=== PATIENT | female | born 1990 | race Caucasian/White ===

== ENCOUNTER 2017-02-19 18:27 | Emergency (ER) | payer OTHER ==
[~2017-02-19] VITALS: Ht 170.2 cm; Wt 79.4 kg
[~2017-02-19 18:27] MED LIST: ACET50TA PO; BUSP10TA PO; COLA100C3 PO; FERR325T PO; IBUP60TA PO; MULTTAB4 PO
[2017-02-19] MEDS ORDERED: LEXA1TAB2 PO (18:36)
[2017-02-19] MEDS ORDERED: ACETAMINOPHEN 325 MG TAB PO ONE (20:45)
[2017-02-19] MEDS ORDERED: PENICILLIN V POTASSIUM 500 MG TAB PO ONE (20:45)
[2017-02-19] MEDS ORDERED: PENI250T57 PO (20:49)
[2017-02-19 20:57] VITALS: BP 111/66
== END 2017-02-19 20:58 | disposition home or self-care (01) ==
LOC: M ED 19:49
DX: J02.0 Streptococcal pharyngitis (principal); D68.0 Von Willebrand disease; F41.9 Anxiety disorder, unspecified; Q79.6 Ehlers-Danlos syndromes; F17.210 Nicotine dependence, cigarettes, uncomplicated; Z88.5 Allergy status to narcotic agent; Z79.899 Other long term (current) drug therapy

== ENCOUNTER → 2017-08-01 | Outpatient (REF) | payer OTHER, MEDICAID ==
[~2017-08-01] MED LIST changes: -COLA100C3 PO; +COLA100C5 PO; +FERR1TAB8 PO; -FERR325T PO; +LEXA1TAB2 PO; +PENI250T57 PO
[2017-08-01 13:33] LABS: BASO # 0.1 10^3/uL (0.0-0.2); BASO % 0.9 % (0.0-1.0); EOS # 0.1 10^3/uL (0.0-0.50); EOS % 1.4 % (0.0-3.0); IMMATURE GRANULOCYTE % 0.4 % (0-0); LYMPH # 1.9 10^3/uL (1.5-6.5); LYMPH % 34.2 % (24.0-44.0); MEAN CORPUSCULAR HEMOGLOBIN 31.4 pg (27.0-33.0); MEAN CORPUSCULAR HGB CONC 33.2 g/dl (32.0-36.5); MEAN CORPUSCULAR VOLUME 94.6 fl (80.0-96.0); MONO # 0.5 10^3/uL (0.0-0.8); MONO % 9.6 % (0.0-5.0); NEUTROPHILS % 53.5 % (36.0-66.0); PLATELET COUNT, AUTOMATED 255 10^3/uL (150-450); RED CELL DISTRIBUTION WIDTH 13.6 % (11.5-14.5); WHITE BLOOD COUNT 5.5 10^3/uL (4.0-10.0)
[2017-08-01 14:01] LABS: ALBUMIN 3.7 GM/DL (3.2-5.2); ALBUMIN/GLOBULIN RATIO 1.12 (1.00-1.93); ALKALINE PHOSPHATASE 77 U/L (45-117); ALT/SGPT 20 U/L (12-78); ANION GAP 9 MEQ/L (8-16); AST/SGOT 11 U/L (15-37); BILIRUBIN,TOTAL 0.4 MG/DL (0.2-1.0); BLOOD UREA NITROGEN 12 MG/DL (7-18); CALCIUM LEVEL 8.7 MG/DL (8.5-10.1); CARBON DIOXIDE LEVEL 23 MEQ/L (21-32); CHLORIDE LEVEL 107 MEQ/L (98-107); CHOLESTEROL LEVEL 144 MG/DL (<200); CREATININE FOR GFR 0.89 MG/DL (0.55-1.02); GLOMERULAR FILTRATION RATE > 60.0 (>60); GLUCOSE, FASTING 96 MG/DL (70-105); POTASSIUM SERUM 4.3 MEQ/L (3.5-5.1); SODIUM LEVEL 139 MEQ/L (136-145); TRIGLYCERIDES LEVEL 34 MG/DL (<150)
[2017-08-01 15:02] LABS: ERYTHROCYTE SEDIMENTATION RATE 10 mm/hr (0-20)
== END ==
LOC: M LAB REF 12:33
PROVIDERS: ATTEND Family Medicine Addiction Medicine
DX: Z00.01 Encounter for general adult medical examination with abnormal findings (principal); F51.5 Nightmare disorder; M25.50 Pain in unspecified joint

== ENCOUNTER → 2017-08-22 | Outpatient (REF) | payer OTHER | LOC: M SFHCWAGY 14:31 | PROVIDERS: ATTEND Nurse Practitioner Women's Health | DX: Z11.4 Encounter for screening for human immunodeficiency virus [HIV] (principal); Z11.3 Encounter for screening for infections with a predominantly sexual mode of transmission ==

== ENCOUNTER → 2017-11-02 | Outpatient (REF) | payer OTHER ==
[2017-11-02 13:59] LABS: CHLAMYDIA DNA AMPLIFICATION NEGATIVE (NEGATIVE); GC DNA AMPLIFICATION NEGATIVE (NEGATIVE)
== END ==
LOC: M SFHCWAGY 11:38
DX: Z11.3 Encounter for screening for infections with a predominantly sexual mode of transmission (principal); R10.2 Pelvic and perineal pain

== ENCOUNTER → 2017-11-02 | Outpatient (CLI) | payer OTHER | LOC: M WHC 13:01 | DX: R10.2 Pelvic and perineal pain (principal) | CPT/HCPCS: 76830 ==

== ENCOUNTER → 2017-12-07 | Outpatient (CLI) | payer OTHER ==
[2017-12-07 11:11] LABS: BASO % 0.6 % (0.0-1.0); EOS # 0.1 10^3/uL (0.0-0.50); EOS % 1.1 % (0.0-3.0); HEMATOCRIT 38.8 % (36.0-47.0); HEMOGLOBIN 13.1 g/dl (12.0-16.0); IMMATURE GRANULOCYTE % 0.6 % (0-3.0); LYMPH # 1.8 10^3/uL (1.5-6.5); LYMPH % 27.5 % (24.0-44.0); MEAN CORPUSCULAR HEMOGLOBIN 31.1 pg (27.0-33.0); MEAN CORPUSCULAR HGB CONC 33.8 g/dl (32.0-36.5); MEAN CORPUSCULAR VOLUME 92.2 fl (80.0-96.0); MONO # 0.7 10^3/uL (0.0-0.8); MONO % 10.9 % (0.0-5.0); NEUTROPHILS # 3.8 10^3/uL (1.8-7.7); NEUTROPHILS % 59.3 % (36.0-66.0); PLATELET COUNT, AUTOMATED 268 10^3/uL (150-450); RED BLOOD COUNT 4.21 10^6/uL (4.00-5.40); RED CELL DISTRIBUTION WIDTH 13.8 % (11.5-14.5); WHITE BLOOD COUNT 6.4 10^3/uL (4.0-10.0)
[2017-12-07 11:31] LABS: ESTIMATED AVERAGE GLUCOSE 105 MG/DL (60-110); HEMOGLOBIN A1c 5.3 %
[2017-12-07 11:45] LABS: ALBUMIN 3.7 GM/DL (3.2-5.2); ALKALINE PHOSPHATASE 78 U/L (45-117); ALT/SGPT 18 U/L (12-78); ANION GAP 7 MEQ/L (8-16); AST/SGOT 15 U/L (7-37); BILIRUBIN,TOTAL 0.3 MG/DL (0.2-1.0); BLOOD UREA NITROGEN 12 MG/DL (7-18); CALCIUM LEVEL 8.6 MG/DL (8.5-10.1); CARBON DIOXIDE LEVEL 26 MEQ/L (21-32); CHLORIDE LEVEL 106 MEQ/L (98-107); CHOLESTEROL LEVEL 142 MG/DL (<200); CREATININE FOR GFR 0.77 MG/DL (0.55-1.30); GLOMERULAR FILTRATION RATE > 60.0 (>60); GLUCOSE, FASTING 92 MG/DL (70-100); HCG, SERUM QUANTITATIVE < 1.0 MIU/ML; HDL CHOLESTEROL 52 MG/DL (>40); LDL CHOLESTEROL 81.6 MG/DL (<100); NON-HDL-C 90 MG/DL; POTASSIUM SERUM 3.9 MEQ/L (3.5-5.1); SODIUM LEVEL 139 MEQ/L (136-145); TOTAL PROTEIN 7.4 GM/DL (6.4-8.2); TRIGLYCERIDES LEVEL 42 MG/DL (<150)
[2017-12-07 11:46] LABS: TOTAL 25(OH) VITAMIN D 26.4 NG/ML (30.0-100.0)
== END ==
LOC: M LAB 10:51
DX: F43.10 Post-traumatic stress disorder, unspecified (principal)
CPT/HCPCS: 84443

== ENCOUNTER → 2018-01-10 | Outpatient (CLI) | payer OTHER ==
[2018-01-10 14:13] LABS: HCG, SERUM QUALITATIVE POSITIVE (NEGATIVE)
[2018-01-10 14:14] LABS: CONTROL LINE HCG INT CTR LINE PRESENT
== END ==
LOC: M LRY 10:45
DX: F43.10 Post-traumatic stress disorder, unspecified (principal)
CPT/HCPCS: 84703

== ENCOUNTER → 2018-01-19 | Outpatient (REF) | payer OTHER ==
[2018-01-19 20:21] LABS: CHLAMYDIA DNA AMPLIFICATION NEGATIVE (NEGATIVE); GC DNA AMPLIFICATION NEGATIVE (NEGATIVE)
== END ==
LOC: M SFHCLERA 12:29
DX: N89.8 Other specified noninflammatory disorders of vagina (principal)

== ENCOUNTER → 2018-03-26 | Outpatient (CLI) | payer OTHER | LOC: M CARPUL 09:54 | DX: L94.9 Localized connective tissue disorder, unspecified (principal) | CPT/HCPCS: 93306 ==

== ENCOUNTER 2018-04-18 14:57 | Emergency (ER) | payer OTHER ==
[2018-04-18] MEDS: NORCO, ANEXSIA 5/325MG TABLET (HYDROcodone/ACETAMINOPHEN) PO (15:59)
[2018-04-18 16:05] LABS: BASO % 0.2 % (0.0-1.0); EOS # 0.2 10^3/uL (0.0-0.50); EOS % 1.3 % (0.0-3.0); HEMATOCRIT 33.4 % (36.0-47.0); HEMOGLOBIN 11.8 g/dl (12.0-15.5); IMMATURE GRANULOCYTE % 0.9 % (0-3.0); LYMPH % 16.5 % (24.0-44.0); MEAN CORPUSCULAR HEMOGLOBIN 32.8 pg (27.0-33.0); MEAN CORPUSCULAR HGB CONC 35.3 g/dl (32.0-36.5); MEAN CORPUSCULAR VOLUME 92.8 fl (80.0-96.0); MONO # 0.8 10^3/uL (0.0-0.8); MONO % 6.6 % (0.0-5.0); NEUTROPHILS # 8.8 10^3/uL (1.8-7.7); NEUTROPHILS % 74.5 % (36.0-66.0); PLATELET COUNT, AUTOMATED 243 10^3/uL (150-450); RED CELL DISTRIBUTION WIDTH 13.9 % (11.5-14.5); WHITE BLOOD COUNT 11.9 10^3/uL (4.0-10.0)
[2018-04-18 16:15] LABS: KETONE, URINE AUTO RFX NEGATIVE (NEGATIVE); MUCUS, URINE RFX SMALL (NEGATIVE); NITRITE, URINE AUTO RFX NEGATIVE (NEGATIVE); RBC, URINE AUTO RFX 5 /HPF (0-3); SPECIFIC GRAVITY UR AUTO RFX 1.016 (1.002-1.035); SQUAM EPITHELIAL CELL UR AURFX 4 /HPF (0-6); WBC, URINE AUTO RFX 2 /HPF (0-3)
[2018-04-18 16:18] LABS: LEUKOCYTE ESTERASE UR AUTO RFX TRACE (NEGATIVE)
[2018-04-18 16:30] LABS: ALBUMIN 2.9 GM/DL (3.2-5.2); ALBUMIN/GLOBULIN RATIO 0.78 (1.00-1.93); ALKALINE PHOSPHATASE 63 U/L (45-117); ALT/SGPT 15 U/L (12-78); ANION GAP 10 MEQ/L (8-16); AST/SGOT 11 U/L (7-37); BILIRUBIN,DIRECT < 0.1 MG/DL (0.0-0.2); BILIRUBIN,TOTAL 0.2 MG/DL (0.2-1.0); BLOOD UREA NITROGEN 10 MG/DL (7-18); CALCIUM LEVEL 8.8 MG/DL (8.5-10.1); CARBON DIOXIDE LEVEL 22 MEQ/L (21-32); CHLORIDE LEVEL 108 MEQ/L (98-107); CREATININE FOR GFR 0.77 MG/DL (0.55-1.30); GLOMERULAR FILTRATION RATE > 60.0 (>60); GLUCOSE, FASTING 87 MG/DL (70-100); POTASSIUM SERUM 3.8 MEQ/L (3.5-5.1); SODIUM LEVEL 140 MEQ/L (136-145); TOTAL PROTEIN 6.6 GM/DL (6.4-8.2)
[2018-04-18 17:43] LABS: CHLAMYDIA DNA AMPLIFICATION NEGATIVE (NEGATIVE); GC DNA AMPLIFICATION NEGATIVE (NEGATIVE)
[2018-04-19 15:13] LABS: RUBELLA IgG QUALITATIVE IMMUNE (IMMUNE)
[2018-04-19 15:42] LABS: HEPATITIS C VIRUS ABY INDEX 0.1 INDEX (<0.8)
[2018-04-19 15:43] LABS: HIV 1&2 SCREEN CENTAUR NEGATIVE (NEGATIVE)
== END 2018-04-18 18:43 | disposition short-term general hospital (02) ==
LOC: M ED 14:57
DX: O26.892 Other specified pregnancy related conditions, second trimester (principal); M16.11 Unilateral primary osteoarthritis, right hip; O23.42 Unspecified infection of urinary tract in pregnancy, second trimester; Z3A.19 19 weeks gestation of pregnancy; O99.112 Other diseases of the blood and blood-forming organs and certain disorders involving the immune mechanism complicating pregnancy, second trimester; D68.0 Von Willebrand disease; Z79.899 Other long term (current) drug therapy; Z88.5 Allergy status to narcotic agent; O99.332 Smoking (tobacco) complicating pregnancy, second trimester; F17.210 Nicotine dependence, cigarettes, uncomplicated
CPT/HCPCS: 73501

== ENCOUNTER → 2018-04-19 | Outpatient (CLI) | payer OTHER | LOC: M RAD 14:09 | DX: Z34.82 Encounter for supervision of other normal pregnancy, second trimester (principal); Z36.89 Encounter for other specified antenatal screening; Z3A.19 19 weeks gestation of pregnancy | CPT/HCPCS: 76811 ==

== ENCOUNTER → 2018-04-29 | Outpatient (REF) | payer OTHER ==
[2018-04-29 17:58] LABS: INR 0.93; PROTHROMBIN TIME 12.6 SECONDS (12.1-14.4)
[2018-04-29 17:59] LABS: FIBRINOGEN 503 MG/DL (221-452); PARTIAL THROMBOPLASTIN TIME 28.4 SECONDS (25.4-37.6)
[2018-05-02 14:40] LABS: F8 ACTIVITY FOR F8 PANEL 111 % (57-163); F8 ACTIVITY vWB FOR F8 PANEL 67 % (50-200); F8 ANTIGEN FOR F8 PANEL 91 % (50-200); INTERPRETATION: Note (.)
== END ==
LOC: M LAB REF 16:50
DX: D68.0 Von Willebrand disease (principal)
CPT/HCPCS: 85246

== ENCOUNTER → 2018-04-30 | Outpatient (REF) | payer OTHER | LOC: M LAB REF 17:06 | DX: Z34.82 Encounter for supervision of other normal pregnancy, second trimester (principal) ==

== ENCOUNTER 2018-05-08 16:58 | Emergency (ER) | payer OTHER ==
[2018-05-08] MEDS ORDERED: NS 1,000 ML IV ×2 (17:45→18:30)
[2018-05-08 17:56] LABS: BEDSIDE GLUCOSE 79 MG/DL (70-105)
[2018-05-08 18:02] LABS: BASO # 0.1 10^3/uL (0.0-0.2); BASO % 0.5 % (0.0-1.0); EOS # 0.5 10^3/uL (0.0-0.50); EOS % 4.6 % (0.0-3.0); HEMATOCRIT 36.3 % (36.0-47.0); HEMOGLOBIN 12.4 g/dl (12.0-15.5); LYMPH # 2.4 10^3/uL (1.5-6.5); LYMPH % 22.9 % (24.0-44.0); MEAN CORPUSCULAR HEMOGLOBIN 33.2 pg (27.0-33.0); MEAN CORPUSCULAR HGB CONC 34.2 g/dl (32.0-36.5); MEAN CORPUSCULAR VOLUME 97.1 fl (80.0-96.0); MONO # 0.7 10^3/uL (0.0-0.8); MONO % 6.5 % (0.0-5.0); NEUTROPHILS # 6.8 10^3/uL (1.8-7.7); NEUTROPHILS % 64.5 % (36.0-66.0); PLATELET COUNT, AUTOMATED 241 10^3/uL (150-450); RED BLOOD COUNT 3.74 10^6/uL (4.00-5.40); RED CELL DISTRIBUTION WIDTH 13.7 % (11.5-14.5); WHITE BLOOD COUNT 10.6 10^3/uL (4.0-10.0)
[2018-05-08 18:12] LABS: INR 0.94; PARTIAL THROMBOPLASTIN TIME 26.6 SECONDS (25.4-37.6); PROTHROMBIN TIME 12.6 SECONDS (12.1-14.4)
[2018-05-08 18:20] LABS: ANION GAP 9 MEQ/L (8-16); BLOOD UREA NITROGEN 8 MG/DL (7-18); CALCIUM LEVEL 8.8 MG/DL (8.5-10.1); CARBON DIOXIDE LEVEL 22 MEQ/L (21-32); CHLORIDE LEVEL 108 MEQ/L (98-107); CK-MB VALUE MASS < 1.0 NG/ML (<3.6); CPK CREATINE PHOSPHOKINASE 49 U/L (26-192); CREATININE FOR GFR 0.74 MG/DL (0.55-1.30); GLOMERULAR FILTRATION RATE > 60.0 (>60); GLUCOSE, FASTING 79 MG/DL (70-100); MB/CK RELATIVE INDEX 2.04 (< OR =4); POTASSIUM SERUM 3.8 MEQ/L (3.5-5.1); SODIUM LEVEL 139 MEQ/L (136-145); TROPONIN I < 0.02 NG/ML (< 0.10)
== END 2018-05-08 19:15 | disposition short-term general hospital (02) ==
LOC: M ED 16:58
DX: O99.89 Other specified diseases and conditions complicating pregnancy, childbirth and the puerperium (principal); I63.8 Other cerebral infarction; O99.332 Smoking (tobacco) complicating pregnancy, second trimester; Z3A.21 21 weeks gestation of pregnancy; O99.112 Other diseases of the blood and blood-forming organs and certain disorders involving the immune mechanism complicating pregnancy, second trimester; Z88.5 Allergy status to narcotic agent
CPT/HCPCS: 70450

== ENCOUNTER → 2018-05-21 | Outpatient (REF) | payer OTHER ==
[2018-05-21 21:35] LABS: BASO % 0.3 % (0.0-1.0); EOS # 0.1 10^3/uL (0.0-0.50); EOS % 1.1 % (0.0-3.0); HEMATOCRIT 33.8 % (36.0-47.0); HEMOGLOBIN 11.5 g/dl (12.0-15.5); IMMATURE GRANULOCYTE % 1.4 % (0-3.0); LYMPH # 1.8 10^3/uL (1.5-6.5); LYMPH % 15.1 % (24.0-44.0); MEAN CORPUSCULAR HEMOGLOBIN 33.5 pg (27.0-33.0); MEAN CORPUSCULAR VOLUME 98.5 fl (80.0-96.0); MONO # 0.8 10^3/uL (0.0-0.8); MONO % 6.6 % (0.0-5.0); NEUTROPHILS # 8.9 10^3/uL (1.8-7.7); NEUTROPHILS % 75.5 % (36.0-66.0); PLATELET COUNT, AUTOMATED 238 10^3/uL (150-450); RED BLOOD COUNT 3.43 10^6/uL (4.00-5.40); RED CELL DISTRIBUTION WIDTH 14.1 % (11.5-14.5); WHITE BLOOD COUNT 11.8 10^3/uL (4.0-10.0)
[2018-05-21 22:00] LABS: ALBUMIN 2.9 GM/DL (3.2-5.2); ALBUMIN/GLOBULIN RATIO 0.76 (1.00-1.93); ALKALINE PHOSPHATASE 85 U/L (45-117); ALT/SGPT 19 U/L (12-78); ANION GAP 8 MEQ/L (8-16); AST/SGOT 12 U/L (7-37); BILIRUBIN,TOTAL 0.2 MG/DL (0.2-1.0); BLOOD UREA NITROGEN 9 MG/DL (7-18); C REACTIVE PROTEIN QUANTITATIV 1.25 MG/DL (0.00-0.30); CALCIUM LEVEL 8.4 MG/DL (8.5-10.1); CARBON DIOXIDE LEVEL 22 MEQ/L (21-32); CHLORIDE LEVEL 109 MEQ/L (98-107); CREATININE FOR GFR 0.56 MG/DL (0.55-1.30); GLOMERULAR FILTRATION RATE > 60.0 (>60); GLUCOSE, FASTING 75 MG/DL (70-100); POTASSIUM SERUM 4.2 MEQ/L (3.5-5.1); SODIUM LEVEL 139 MEQ/L (136-145); TOTAL PROTEIN 6.7 GM/DL (6.4-8.2)
[2018-05-21 22:38] LABS: ERYTHROCYTE SEDIMENTATION RATE 44 mm/hr (0-20)
[2018-05-23 14:17] LABS: ANTINUCLEAR ANTIBODIES DIRECT Negative (Negative)
== END ==
LOC: M LAB REF 21:27
DX: R06.00 Dyspnea, unspecified (principal); M25.50 Pain in unspecified joint
CPT/HCPCS: 84443

== ENCOUNTER → 2018-05-21 | Outpatient (REF) | payer OTHER ==
[2018-05-21 17:11] LABS: COLLAGEN EPINEPHRINE 213 SECONDS (74-162)
[2018-05-21 17:34] LABS: COLLAGEN ADP 133 SECONDS (56-103)
[2018-05-27 00:07] LABS: F8 ACTIVITY FOR F8 PANEL 123 % (57-163); F8 ACTIVITY vWB FOR F8 PANEL 72 % (50-200); F8 ANTIGEN FOR F8 PANEL 100 % (50-200); INTERPRETATION: Note (.)
== END ==
LOC: M LAB REF 16:25
DX: R23.3 Spontaneous ecchymoses (principal)

== ENCOUNTER 2018-05-29 14:37 | Outpatient (RCR) | payer OTHER | END 2018-06-14 | LOC: M PT 14:37 | DX: O35.1XX9 Maternal care for (suspected) chromosomal abnormality in fetus, other fetus (principal); Q79.6 Ehlers-Danlos syndromes; O71.6 Obstetric damage to pelvic joints and ligaments; Z51.89 Encounter for other specified aftercare; Z3A.23 23 weeks gestation of pregnancy | CPT/HCPCS: 97110 ==

== ENCOUNTER 2018-06-09 00:07 | Outpatient (CLI) | payer OTHER ==
[2018-06-09 00:48] LABS: APPEARANCE, URINE HAZY (CLEAR); BACTERIA, URINE AUTO 1+ (NEGATIVE); BILIRUBIN, URINE AUTO NEGATIVE (NEGATIVE); BLOOD, URINE BLOOD 1+ (NEGATIVE); COLOR, URINE YELLOW (YELLOW); GLUCOSE, URINE (UA) AUTO NEGATIVE (NEGATIVE); KETONE, URINE AUTO NEGATIVE (NEGATIVE); LEUKOCYTE ESTERASE, URINE AUTO TRACE (NEGATIVE); MUCUS, URINE SMALL (NEGATIVE); NITRITE, URINE AUTO NEGATIVE (NEGATIVE); PROTEIN, URINE AUTO NEGATIVE (NEGATIVE); RBC, URINE AUTO 2 /HPF (0-3); SPECIFIC GRAVITY URINE AUTO 1.012 (1.002-1.035); SQUAMOUS EPITHELIAL CELL UR AU 9 /HPF (0-6); UROBILINOGEN, URINE AUTO 0.2 mg/dL (0.0-2.0); WBC, URINE AUTO 3 /HPF (0-3)
[2018-06-09 00:49] LABS: HEMATOCRIT 33.2 % (36.0-47.0); HEMOGLOBIN 11.5 g/dl (12.0-15.5); MEAN CORPUSCULAR HEMOGLOBIN 33.1 pg (27.0-33.0); MEAN CORPUSCULAR HGB CONC 34.6 g/dl (32.0-36.5); MEAN CORPUSCULAR VOLUME 95.7 fl (80.0-96.0); PLATELET COUNT, AUTOMATED 210 10^3/uL (150-450); RED BLOOD COUNT 3.47 10^6/uL (4.00-5.40); RED CELL DISTRIBUTION WIDTH 13.5 % (11.5-14.5); WHITE BLOOD COUNT 7.2 10^3/uL (4.0-10.0)
[2018-06-09 01:00] LABS: AMPHETAMINES URINE REFLEX NEGATIVE (NEGATIVE); BENZODIAZEPINES URINE REFLEX NEGATIVE (NEGATIVE); CANNABINOIDS URINE REFLEX NEGATIVE (NEGATIVE); COCAINE METABOLITE URINE REFLE NEGATIVE (NEGATIVE); METHADONE URINE REFLEX NEGATIVE (NEGATIVE); OPIATES URINE REFLEX NEGATIVE (NEGATIVE); PHENCYCLIDINE URINE REFLEX NEGATIVE (NEGATIVE)
[2018-06-09 01:02] LABS: BARBITURATES URINE REFLEX PENDING CONFIRMATION (NEGATIVE)
[2018-06-09 01:11] LABS: ALBUMIN 2.6 GM/DL (3.2-5.2); ALBUMIN/GLOBULIN RATIO 0.68 (1.00-1.93); ALKALINE PHOSPHATASE 104 U/L (45-117); ALT/SGPT 36 U/L (12-78); AMYLASE 71 U/L (25-115); ANION GAP 10 MEQ/L (8-16); AST/SGOT 31 U/L (7-37); BILIRUBIN,TOTAL 0.2 MG/DL (0.2-1.0); BLOOD UREA NITROGEN 10 MG/DL (7-18); CALCIUM LEVEL 8.2 MG/DL (8.5-10.1); CARBON DIOXIDE LEVEL 21 MEQ/L (21-32); CHLORIDE LEVEL 108 MEQ/L (98-107); CREATININE FOR GFR 0.69 MG/DL (0.55-1.30); GLOMERULAR FILTRATION RATE > 60.0 (>60); GLUCOSE, FASTING 87 MG/DL (70-100); LIPASE 217 U/L (73-393); POTASSIUM SERUM 3.6 MEQ/L (3.5-5.1); SODIUM LEVEL 139 MEQ/L (136-145); TOTAL PROTEIN 6.4 GM/DL (6.4-8.2)
== END 2018-06-09 02:32 | disposition home or self-care (01) ==
LOC: M LDO 00:07
DX: O98.512 Other viral diseases complicating pregnancy, second trimester (principal); Z3A.25 25 weeks gestation of pregnancy
CPT/HCPCS: 82150

== ENCOUNTER → 2018-06-24 | Outpatient (CLI) | payer OTHER | LOC: M RAD 16:04 | DX: Z34.82 Encounter for supervision of other normal pregnancy, second trimester (principal); Z3A.27 27 weeks gestation of pregnancy | CPT/HCPCS: 76816 ==

== ENCOUNTER → 2018-08-16 | Outpatient (REF) | payer OTHER | LOC: M LAB REF 17:12 | DX: Z3A.35 35 weeks gestation of pregnancy (principal) ==

== ENCOUNTER 2018-08-27 05:14 | Emergency (ER) | payer OTHER ==
[2018-08-27 05:58] LABS: HEMOGLOBIN 10.4 g/dl (12.0-15.5); MEAN CORPUSCULAR HEMOGLOBIN 30.6 pg (27.0-33.0); MEAN CORPUSCULAR HGB CONC 33.5 g/dl (32.0-36.5); MEAN CORPUSCULAR VOLUME 91.2 fl (80.0-96.0); PLATELET COUNT, AUTOMATED 251 10^3/uL (150-450); RED CELL DISTRIBUTION WIDTH 13.7 % (11.5-14.5); WHITE BLOOD COUNT 10.6 10^3/uL (4.0-10.0)
[2018-08-27 06:30] LABS: CONTROL LINE HCG INT CTR LINE PRESENT; HCG, SERUM QUALITATIVE POSITIVE (NEGATIVE)
[2018-08-27 06:34] LABS: ACETAMINOPHEN LEVEL < 2.0 UG/ML (10.0-30.0); ALBUMIN/GLOBULIN RATIO 0.75 (1.00-1.93); ALKALINE PHOSPHATASE 138 U/L (45-117); ALT/SGPT 18 U/L (12-78); ANION GAP 12 MEQ/L (8-16); AST/SGOT 15 U/L (7-37); BILIRUBIN,DIRECT < 0.1 MG/DL (0.0-0.2); BILIRUBIN,TOTAL 0.3 MG/DL (0.2-1.0); BLOOD UREA NITROGEN 4 MG/DL (7-18); CALCIUM LEVEL 9.2 MG/DL (8.5-10.1); CARBON DIOXIDE LEVEL 19 MEQ/L (21-32); CHLORIDE LEVEL 109 MEQ/L (98-107); CREATININE FOR GFR 0.68 MG/DL (0.55-1.30); ETHYL ALCOHOL (ETHANOL) 0.184 % (0.000-0.010); GLOMERULAR FILTRATION RATE > 60.0 (>60); GLUCOSE, FASTING 121 MG/DL (70-100); POTASSIUM SERUM 3.7 MEQ/L (3.5-5.1); SALICYLATE LEVEL < 1.7 MG/DL (5.0-30.0); SODIUM LEVEL 140 MEQ/L (136-145)
[2018-08-27 07:01] LABS: HCG, SERUM QUANTITATIVE 5470 MIU/ML
[2018-08-27 07:14] LABS: AMPHETAMINES LEVEL URINE NEGATIVE (NEGATIVE); BARBITURATES URINE NEGATIVE (NEGATIVE); BENZODIAZEPINES URINE NEGATIVE (NEGATIVE); CANNABINOIDS URINE NEGATIVE (NEGATIVE); COCAINE METABOLITE URINE NEGATIVE (NEGATIVE); METHADONE URINE NEGATIVE (NEGATIVE); OPIATES URINE NEGATIVE (NEGATIVE); PHENCYCLIDINE URINE NEGATIVE (NEGATIVE)
== END 2018-08-27 12:08 | disposition home or self-care (01) ==
LOC: M ED 05:14
DX: O99.313 Alcohol use complicating pregnancy, third trimester (principal); O99.343 Other mental disorders complicating pregnancy, third trimester; F41.9 Anxiety disorder, unspecified; F43.10 Post-traumatic stress disorder, unspecified; O99.119 Other diseases of the blood and blood-forming organs and certain disorders involving the immune mechanism complicating pregnancy, unspecified trimester; Q79.6 Ehlers-Danlos syndromes; Z88.5 Allergy status to narcotic agent; Z3A.00 Weeks of gestation of pregnancy not specified
CPT/HCPCS: 80320

== ENCOUNTER → 2019-10-20 | Outpatient (CLI) | payer OTHER ==
[~2019-10-20] MED LIST changes: -ACET50TA PO; +AUGM500T34 PO; +BUTACAP78 PO; +CVS500CA5 PO; +GNP250TA9 PO; +HM C500T3 PO; +HYDR-3715 PO; +IBUP600T42 PO; -IBUP60TA PO; +IRON1TAB2 PO; +LATU20TA PO; +MAPA500T2 PO; +PROM25TA12 PO; +REGL5TAB2 PO; +RISP0.253 PO; +STIM1.5S; +VENTAER INH; +XANA1TAB2 PO
--- NOTE | 2019-10-20 14:28 | REP ---
Cervical spine series: Seven views. History: Back pain after a fall. Findings: Cervical vertebral body heights are preserved. Alignment is normal. Lateral films in flexion/extension show no subluxation or instability. Prevertebral soft tissues are not widened. No fracture is seen. AP, oblique, and open mouth odontoid views are unremarkable. Impression: Negative radiographs of the cervical spine. CT scanning is more sensitive for fracture than plain radiography. Electronically Signed by Dyllan Littlejohn MD 10/20/2019 02:20 P
--- NOTE | 2019-10-20 14:29 | REP ---
Thoracic spine series: Three views. History: Back pain after a fall. Findings: Thoracic vertebral body heights are preserved. No fracture or collapse is seen. Alignment is normal. No paravertebral soft tissue hematoma is appreciated. Pedicles and posterior elements are intact. Swimmer's lateral view shows no additional abnormality. There are clips in right upper quadrant of the abdomen. Impression: Negative thoracic spine radiographs. Electronically Signed by Dyllan Littlejohn MD 10/20/2019 02:21 P
--- NOTE | 2019-10-20 14:31 | REP ---
Lumbar spine series: Five views. History: Back pain after a fall. Findings: There are clips in right upper quadrant of the abdomen and an IUD is seen projecting in the pelvis. Umbilical jewelry is present. Lumbar vertebral body heights are preserved. Alignment is normal. Pedicles and posterior elements are intact. There is no evidence of spondylolysis or spondylolisthesis. Disc spaces are maintained. Psoas margins are symmetric. Sacrum and SI joints are unremarkable. Impression: Negative lumbar spine radiographs. Electronically Signed by Dyllan Littlejohn MD 10/20/2019 02:56 P
== END ==
LOC: M RAD 13:32
PROVIDERS: ATTEND Physician Assistant Medical
DX: M54.5 Low back pain (principal)

== ENCOUNTER → 2019-10-21 | Outpatient (REF) | payer OTHER | LOC: M LAB REF 18:45 | PROVIDERS: ATTEND Dermatology | DX: D48.9 Neoplasm of uncertain behavior, unspecified (principal) ==

== ENCOUNTER → 2019-11-03 | Outpatient (REF) | payer OTHER ==
[2019-11-03 19:01] LABS: BASO % 0.8 % (0.0-1.0); EOS % 0.8 % (0.0-3.0); HEMATOCRIT 41.3 % (36.0-47.0); HEMOGLOBIN 12.9 g/dl (12.0-15.5); LYMPH # 1.6 10^3/uL (1.5-5.0); MEAN CORPUSCULAR HEMOGLOBIN 29.9 pg (27.0-33.0); MEAN CORPUSCULAR HGB CONC 31.2 g/dl (32.0-36.5); MEAN CORPUSCULAR VOLUME 95.8 fl (80.0-96.0); MONO # 0.3 10^3/uL (0.0-0.8); MONO % 6.6 % (0.0-5.0); NEUTROPHILS # 3.1 10^3/uL (1.5-8.5); NEUTROPHILS % 60.2 % (36.0-66.0); PLATELET COUNT, AUTOMATED 313 10^3/uL (150-450); RED BLOOD COUNT 4.31 10^6/uL (4.00-5.40); WHITE BLOOD COUNT 5.1 10^3/uL (4.0-10.0)
[2019-11-03 19:23] LABS: ERYTHROCYTE SEDIMENTATION RATE 7 mm/hr (0-20)
[2019-11-03 19:30] LABS: C REACTIVE PROTEIN QUANTITATIV < 0.30 MG/DL (0.00-0.30); RHEUMATOID FACTOR QUANT < 10.0 IU/ML (<15.0)
[2019-11-06 00:07] LABS: ANTINUCLEAR ANTIBODIES DIRECT Negative (Negative); Lyme Disease IgG/IgM Antibodie <0.91 ISR (0.00-0.90); Lyme Disease IgM Ab Quantitati <0.80 index (0.00-0.79)
== END ==
LOC: M LABDRAW1 17:19
PROVIDERS: ATTEND Orthopaedic Surgery
DX: M70.61 Trochanteric bursitis, right hip (principal)

== ENCOUNTER 2020-04-12 20:04 | Emergency (ER) | payer MEDICAID ==
[~2020-04-12] VITALS: Ht 170.2 cm; Wt 81.8 kg
[2020-04-12 21:00] VITALS: BP 111/71
--- NOTE | 2020-04-13 08:10 | REP ---
Clinical: Cough . Comparison: 07/25/2015 . Findings: The mediastinum and cardiac silhouette are stable and within normal limits for portable technique. The lung brown are clear without acute consolidation, effusion, or pneumothorax. Skeletal structures are intact. Impression: No acute cardiopulmonary process appreciated. Electronically Signed by Jason Smith MD 04/13/2020 08:01 A
== END 2020-04-12 21:42 | disposition home or self-care (01) ==
LOC: M ED 20:04
DX: Z20.828 Contact with and (suspected) exposure to other viral communicable diseases (principal); D68.0 Von Willebrand disease; F41.9 Anxiety disorder, unspecified; F17.200 Nicotine dependence, unspecified, uncomplicated; Z88.5 Allergy status to narcotic agent; Z79.899 Other long term (current) drug therapy

== ENCOUNTER → 2020-04-12 | Outpatient (CLI) | payer MEDICAID | LOC: M OUTALCOH 07:58 | PROVIDERS: ATTEND Psychiatry & Neurology Addiction Medicine | DX: Z13.39 Encounter for screening examination for other mental health and behavioral disorders (principal); F10.10 Alcohol abuse, uncomplicated ==

== ENCOUNTER 2020-04-16 23:41 | Emergency (ER) | payer MEDICAID ==
[~2020-04-16] VITALS: Ht 170.2 cm; Wt 80.0 kg
[2020-04-17 01:16] VITALS: BP 117/55
[2020-04-17] MEDS ORDERED: DERMABOND TOPICAL SKIN ADHESIVE TOP ONE (02:00)
[2020-06-04] MEDS ORDERED: HYDR-3713 PO (08:22)
[2020-06-04] MEDS ORDERED: BUSP15TA47 PO (08:22)
[2020-06-04] MEDS ORDERED: ESCI20TA PO (08:22)
== END 2020-04-17 03:16 | disposition left against medical advice (07) ==
LOC: M ED 23:41
DX: S01.81XA Laceration without foreign body of other part of head, initial encounter (principal); W22.8XXA Striking against or struck by other objects, initial encounter; Y92.89 Other specified places as the place of occurrence of the external cause; Z79.899 Other long term (current) drug therapy

== ENCOUNTER 2020-04-18 17:42 | Emergency (ER) | payer MEDICAID ==
[~2020-04-18] VITALS: Ht 170.2 cm; Wt 81.8 kg
[2020-04-18 17:44] VITALS: BP 129/72
[2020-06-04] MEDS ORDERED: ESCI20TA PO (08:22)
[2020-06-04] MEDS ORDERED: BUSP15TA47 PO (08:22)
[2020-06-04] MEDS ORDERED: HYDR-3713 PO (08:22)
== END 2020-04-18 19:28 | disposition left against medical advice (07) ==
LOC: M ED 17:42
DX: S09.93XA Unspecified injury of face, initial encounter (principal); X58.XXXA Exposure to other specified factors, initial encounter; Y92.009 Unspecified place in unspecified non-institutional (private) residence as the place of occurrence of the external cause; Y93.9 Activity, unspecified; D75.9 Disease of blood and blood-forming organs, unspecified; Q79.60 Ehlers-Danlos syndrome, unspecified; F41.9 Anxiety disorder, unspecified; F43.10 Post-traumatic stress disorder, unspecified; F17.200 Nicotine dependence, unspecified, uncomplicated; Z79.899 Other long term (current) drug therapy; Z88.5 Allergy status to narcotic agent

== ENCOUNTER 2020-05-11 16:00 | Outpatient (RCR) | payer MEDICAID ==
[~2020-05-11 16:00] MED LIST changes: -BUSP15TA47 PO; -ESCI20TA PO; -HYDR-3713 PO
[2020-06-04] MEDS ORDERED: HYDR-3713 PO (08:22)
[2020-06-04] MEDS ORDERED: ESCI20TA PO (08:22)
[2020-06-04] MEDS ORDERED: BUSP15TA47 PO (08:22)
== END 2020-05-14 ==
LOC: M OUTALCOH 16:00
PROVIDERS: ATTEND Psychiatry & Neurology Addiction Medicine
DX: F10.10 Alcohol abuse, uncomplicated (principal); Z72.0 Tobacco use

== ENCOUNTER → 2020-05-11 | Outpatient (CLI) | payer MEDICAID ==
[~2020-05-11] MED LIST changes: +BUSP15TA47 PO; +ESCI20TA PO; +HYDR-3713 PO
[2020-06-07 21:14] LABS: BASO % 0.5 % (0.0-1.0); EOS # 0.1 10^3/uL (0.0-0.5); HEMATOCRIT 40.2 % (36.0-47.0); HEMOGLOBIN 13.3 g/dl (12.0-15.5); LYMPH # 2.2 10^3/uL (1.5-5.0); MEAN CORPUSCULAR HEMOGLOBIN 32.4 pg (27.0-33.0); MEAN CORPUSCULAR HGB CONC 33.1 g/dl (32.0-36.5); MEAN CORPUSCULAR VOLUME 97.8 fl (80.0-96.0); MONO # 0.7 10^3/uL (0.0-0.8); NEUTROPHILS # 4.8 10^3/uL (1.5-8.5); NEUTROPHILS % 61.2 % (36.0-66.0); PLATELET COUNT, AUTOMATED 222 10^3/uL (150-450); RED BLOOD COUNT 4.11 10^6/uL (4.00-5.40); WHITE BLOOD COUNT 7.9 10^3/uL (4.0-10.0)
[2020-06-07 21:27] LABS: APPEARANCE, URINE CLEAR (CLEAR); BACTERIA, URINE AUTO NEGATIVE (NEGATIVE); BILIRUBIN, URINE AUTO NEGATIVE (NEGATIVE); BLOOD, URINE BLOOD NEGATIVE (NEGATIVE); COLOR, URINE COLORLESS (YELLOW); GLUCOSE, URINE (UA) AUTO NEGATIVE (NEGATIVE); KETONE, URINE AUTO NEGATIVE (NEGATIVE); LEUKOCYTE ESTERASE, URINE AUTO TRACE (NEGATIVE); NITRITE, URINE AUTO NEGATIVE (NEGATIVE); PROTEIN, URINE AUTO NEGATIVE (NEGATIVE); RBC, URINE AUTO 3 /HPF (0-3); SPECIFIC GRAVITY URINE AUTO 1.005 (1.002-1.035); SQUAMOUS EPITHELIAL CELL UR AU 1 /HPF (0-6); UROBILINOGEN, URINE AUTO 0.2 mg/dL (0.0-2.0); WBC, URINE AUTO 1 /HPF (0-3)
[2020-06-15 13:18] LABS: CHLAMYDIA DNA AMPLIFICATION NEGATIVE (NEGATIVE); GC DNA AMPLIFICATION NEGATIVE (NEGATIVE)
[2020-06-19 08:39] LABS: ALBUMIN 4.1 GM/DL (3.2-5.2); ALT/SGPT 25 U/L (12-78); BILIRUBIN,TOTAL 0.2 MG/DL (0.2-1.0); BLOOD UREA NITROGEN 15 MG/DL (7-18); CARBON DIOXIDE LEVEL 27 MEQ/L (21-32); CHLORIDE LEVEL 107 MEQ/L (98-107); CREATININE FOR GFR 0.87 MG/DL (0.55-1.30); GLOMERULAR FILTRATION RATE > 60.0 (>60); GLUCOSE, FASTING 72 MG/DL (70-100); HEPATITIS B SURFACE ANTIBODY POSITIVE (POSITIVE); HEPATITIS C VIRUS ABY INDEX 0.2 INDEX (<0.8); HIV 1&2 SCREEN CENTAUR NEGATIVE (NEGATIVE); POTASSIUM SERUM 4.1 MEQ/L (3.5-5.1); SODIUM LEVEL 141 MEQ/L (136-145); TOTAL PROTEIN 7.4 GM/DL (6.4-8.2)
== END ==
LOC: M LAB 17:25
PROVIDERS: ATTEND Nurse Practitioner Family
DX: Z11.3 Encounter for screening for infections with a predominantly sexual mode of transmission (principal); S02.842 Fracture of lateral orbital wall, left side; S02.40DS Maxillary fracture, left side, sequela; X58.XXXS Exposure to other specified factors, sequela; Y92.9 Unspecified place or not applicable

== ENCOUNTER 2020-06-08 15:00 | Outpatient (RCR) | payer MEDICAID, OTHER ==
[~2020-06-08 15:00] MED LIST changes: +BUSP15TA47 PO; +ESCI20TA PO; +HYDR-3713 PO
== END 2020-06-14 ==
LOC: M OUTALCOH 15:00
PROVIDERS: ATTEND Psychiatry & Neurology Addiction Medicine
DX: F10.10 Alcohol abuse, uncomplicated (principal); Z72.0 Tobacco use

== ENCOUNTER → 2020-06-15 | Outpatient (CLI) | payer MEDICAID, OTHER ==
--- NOTE | 2020-07-14 09:01 | REP ---
BILATERAL WHOLE BREAST ULTRASOUND REASON FOR EXAM: Bilateral breast pain for one year. TECHNIQUE: Automated bilateral whole breast ultrasound performed. FINDINGS: There is no cystic or solid nodule in the left breast. In the right breast at 9 o'clock approximately 5 cm from the nipple, there is a benign appearing intramammary lymph node with a thin hypoechoic rim and an echogenic fatty hilum. It measures 7 x 7 x 3 mm. At the 10 o'clock position right breast approximately 5 cm from the nipple, there is an oval hypoechoic nodule with internal echoes. This measures 5 x 4 x 2 mm. This is not a simple cyst. This could represent a complex cyst or solid nodule. Ultrasound guided biopsy is recommended. IMPRESSION: ACR 4 suspicious. Oval hypoechoic nodule right breast at the 10 o'clock position approximately 5 cm from the nipple measuring 5 x 4 x 2 mm. This may represent a complex cyst or solid nodule. Recommend ultrasound guided sampling. MTDD
== END ==
LOC: M WHC 13:14
PROVIDERS: ATTEND Physician Assistant
DX: N64.4 Mastodynia (principal)

== ENCOUNTER 2020-07-13 10:00 | Outpatient (RCR) | payer MEDICAID | END 2020-07-14 | LOC: M OUTALCOH 10:00 | PROVIDERS: ATTEND Psychiatry & Neurology Addiction Medicine | DX: F10.10 Alcohol abuse, uncomplicated (principal); Z72.0 Tobacco use ==

== ENCOUNTER 2020-08-11 12:00 | Outpatient (RCR) | payer MEDICAID | END 2020-08-14 | LOC: M OUTALCOH 12:00 | PROVIDERS: ATTEND Psychiatry & Neurology Addiction Medicine | DX: F10.20 Alcohol dependence, uncomplicated (principal); Z72.0 Tobacco use ==

== ENCOUNTER 2020-08-24 08:00 | Outpatient (RCR) | payer MEDICAID | END 2020-09-13 | LOC: M OUTALCOH 08:00 | PROVIDERS: ATTEND Psychiatry & Neurology Addiction Medicine | DX: F10.10 Alcohol abuse, uncomplicated (principal); Z72.0 Tobacco use ==

== ENCOUNTER → 2020-09-12 | Outpatient (CLI) | payer OTHER ==
--- NOTE | 2020-09-12 16:07 | REP ---
INDICATION: LEFT ANKLE INJURY COMPARISON: None. TECHNIQUE: AP, lateral, bilateral oblique views. FINDINGS: No acute fracture or dislocation. Skeletal structures and joint spaces are intact and normal. Ankle mortise appears stable. No subcutaneous emphysema or radiodense foreign body. IMPRESSION: Normal left ankle radiograph series. No acute fracture or dislocation. <Electronically signed by Jason Smith > 09/12/20 [id number]
== END ==
LOC: M RAD 15:19
PROVIDERS: ATTEND Physician Assistant Medical
DX: S99.912A Unspecified injury of left ankle, initial encounter (principal)

== ENCOUNTER → 2020-10-20 | Outpatient (REF) | payer OTHER | LOC: M LAB REF 15:10 | PROVIDERS: ATTEND Physician Assistant | DX: Z11.3 Encounter for screening for infections with a predominantly sexual mode of transmission (principal) ==

== ENCOUNTER → 2020-11-09 | Outpatient (CLI) | payer OTHER ==
[~2020-11-09] MED LIST changes: -ESCI20TA PO; +ESCI20TA16 PO
[2020-11-09 10:14] VITALS: BP 122/64
--- NOTE | 2020-11-09 12:19 | REP ---
INDICATION: R BREAST MASS/US GUIDED BX. COMPARISON: None. TECHNIQUE: The procedure was performed under the direct supervision of Dr. Littlejohn. The risks and benefits of the procedure were explained to the patient and informed consent was obtained. The patient has a history of an oval, hypoechoic nodule in the right breast at the 10 o'clock position measuring 5 by 4 x 2 mm seen on a previous ultrasound dated 06/15/2020. The right breast nodule was localized using ultrasound guidance. The skin was prepped and draped in a sterile fashion. 1% Xylocaine was used as a local anesthetic. Using ultrasound guidance a 14 gauge Bard biopsy needle was inserted and 4 core biopsy samples are obtained. A marker clip was placed at the biopsy site The patient tolerated the procedure well and there were no immediate complications. After the appropriate amount of monitored convalescence, the patient was discharged from the department. FINDINGS: None IMPRESSION: Ultrasound-guided right breast biopsy with marker clip placement. <Electronically signed by Alek Markham > 11/09/20 1202 <Electronically signed by Deandre Littlejohn > 11/09/20 1212
== END ==
LOC: M WHCPRO 09:08
PROVIDERS: ATTEND Surgery
DX: N60.01 Solitary cyst of right breast (principal); Z88.8 Allergy status to other drugs, medicaments and biological substances

== ENCOUNTER → 2020-11-22 | Outpatient (CLI) | payer OTHER | LOC: M PLALAB 15:17 | PROVIDERS: ATTEND Surgery | DX: Z15.09 Genetic susceptibility to other malignant neoplasm (principal) ==

== ENCOUNTER → 2020-12-03 | Outpatient (CLI) | payer MEDICAID | LOC: M OUTALCOH 09:17 | PROVIDERS: ATTEND Psychiatry & Neurology Psychiatry | DX: Z79.899 Other long term (current) drug therapy (principal) ==

== ENCOUNTER 2020-12-14 14:06 | Outpatient (RCR) | payer MEDICAID ==
[2020-12-23] MEDS ORDERED: PERC5TAB12 PO (03:36)
== END 2021-01-12 ==
LOC: M OUTALCOH 14:06
PROVIDERS: ATTEND Psychiatry & Neurology Psychiatry
DX: F10.10 Alcohol abuse, uncomplicated (principal); Z72.0 Tobacco use

== ENCOUNTER 2020-12-23 00:55 | Emergency (ER) | payer MEDICAID, OTHER ==
[~2020-12-23] VITALS: Ht 170.2 cm; Wt 70.0 kg
[2020-12-23] MEDS ORDERED: IBUPROFEN 600MG TAB PO ONE (01:50)
--- NOTE | 2020-12-23 02:47 | REPVR ---
PROCEDURE INFORMATION: Exam: XR Left Ankle Exam date and time: 12/23/2020 2:10 AM Age: 30 years old Clinical indication: Other: Trauma TECHNIQUE: Imaging protocol: XR Left ankle. Views: 3 or more views. COMPARISON: CR Ankle, complete 09/12/2020 3:31 PM FINDINGS: Bones/joints: Joint spaces are normal. No fracture or malalignment. Soft tissues: Normal. IMPRESSION: No fracture or malalignment. Electronically signed by: Andrew Turner On 12/23/2020 02:48:09 AM
--- NOTE | 2020-12-23 02:50 | REPVR ---
PROCEDURE INFORMATION: Exam: XR Left Elbow Exam date and time: 12/23/2020 2:10 AM Age: 30 years old Clinical indication: Other: Trauma TECHNIQUE: Imaging protocol: XR Left elbow. Views: 3 or more views. COMPARISON: CR Elbow, complete 07/16/2015 7:09 PM FINDINGS: Bones/joints: There is an elbow joint effusion. Nondisplaced fracture of the superomedial radial head. Normal alignment at the elbow. No other fracture is seen. No joint space narrowing. Heterotopic ossification is noted along the medial epicondyle and radial head. Soft tissues: Mild soft tissue swelling. IMPRESSION: 1. Nondisplaced radial head fracture with joint effusion. 2. Heterotopic ossification at the elbow may be related to previous ligament injury. Electronically signed by: Andrew Turner On 12/23/2020 02:51:27 AM
--- NOTE | 2020-12-23 02:53 | REPVR ---
PROCEDURE INFORMATION: Exam: XR Left Knee Exam date and time: 12/23/2020 2:10 AM Age: 30 years old Clinical indication: Other: Trauma TECHNIQUE: Imaging protocol: XR Left knee. Views: 4 or more views. COMPARISON: No relevant prior studies available. FINDINGS: Bones/joints: Joint spaces are normal. No fracture or malalignment. Soft tissues: Normal. IMPRESSION: No fracture or malalignment. Electronically signed by: Andrew Turner On 12/23/2020 02:54:02 AM
--- NOTE | 2020-12-23 02:55 | REPVR ---
PROCEDURE INFORMATION: Exam: XR Thoracic Spine Exam date and time: 12/23/2020 2:10 AM Age: 30 years old Clinical indication: Other: [place]; Additional info: Trauma TECHNIQUE: Imaging protocol: XR of the thoracic spine. Views: 3 views. COMPARISON: NM Spine, Thoracic 3 VIEWS 10/20/2019 2:14 PM FINDINGS: Bones/joints: Normal. No acute fracture. Normal alignment. Disc spaces are unremarkable. Soft tissues: Unremarkable. IMPRESSION: No acute findings. Electronically signed by: Andrew Turner On 12/23/2020 02:55:35 AM
[2020-12-23] MEDS ORDERED: PERCOCET 5MG/325MG TAB PO ONE (03:25)
[2020-12-23] MEDS ORDERED: PERC5TAB12 PO (03:36)
[2020-12-23 03:59] VITALS: BP 121/69
== END 2020-12-23 04:01 | disposition home or self-care (01) ==
LOC: M ED 00:55
DX: S52.125A Nondisplaced fracture of head of left radius, initial encounter for closed fracture (principal); S93.402A Sprain of unspecified ligament of left ankle, initial encounter; M23.92 Unspecified internal derangement of left knee; F17.200 Nicotine dependence, unspecified, uncomplicated; F32.9 Major depressive disorder, single episode, unspecified; F41.9 Anxiety disorder, unspecified; Z79.899 Other long term (current) drug therapy; Z79.891 Long term (current) use of opiate analgesic; Z88.6 Allergy status to analgesic agent; Y92.9 Unspecified place or not applicable; Y93.9 Activity, unspecified; Y99.9 Unspecified external cause status

== ENCOUNTER → 2021-01-04 | Outpatient (CLI) | payer OTHER ==
[~2021-01-04] MED LIST changes: +PERC5TAB12 PO
--- NOTE | 2021-01-05 08:23 | REP ---
INDICATION: PAIN IN RT HIP ? LABRAL TEAR VS TROCHANTERIC BURSI. COMPARISON: Comparison AP radiograph right hip April 18, 2018.. TECHNIQUE: Large [id number]-oa-[id number] coronal T1 and fat sat T2 images of bilateral hips are acquired. Smaller cbzpt-ik-obra T1 fat sat images of the right hip are acquired in all 3 planes. FINDINGS: Cortical and medullary bone signal intensity are normal in the proximal femurs bilaterally. There is no evidence to suggest avascular necrosis. Bone signal intensity is normal in the visualized bony pelvic ring as well. No uterine or ovarian abnormality is seen. Urinary bladder auguste appear smooth. No intrapelvic mass or adenopathy is seen. No significant hip joint effusion is noted. T2 weighted scans show no evidence of bursal effusion, cyst, or mass. There is no visible acetabular labral tear. Head neck junction morphology is unremarkable. Hamstring tendon and other tendon insertions are unremarkable as well. No vascular abnormality is seen. IMPRESSION: Negative MRI study of the right hip. <Electronically signed by Deandre Littlejohn > 01/05/21 0891
== END ==
LOC: M PLARAD 15:50
PROVIDERS: ATTEND Orthopaedic Surgery
DX: M25.551 Pain in right hip (principal)

== ENCOUNTER → 2021-03-08 | Outpatient (CLI) | payer OTHER ==
[~2021-03-08] MED LIST changes: -HM C500T3 PO; +HM C500T4 PO
--- NOTE | 2021-03-08 10:55 | REP ---
INDICATION: PAIN IN UNSPECIFIED JOINT *LABS 1ST, XRY 2ND*. COMPARISON: 10/20/2019 TECHNIQUE: AP, flexion/extension, and lateral views of the cervical spine. FINDINGS: Alignment and lordosis maintained. No acute fracture/compression injury or subluxation. Mild endplate sclerosis with marginal spurring and disc space narrowing noted at C6-7 and to a lesser extent C7-T1 and C5-6. IMPRESSION: Mild multilevel degenerative changes. <Electronically signed by Jason Smith > 03/08/21 1623
--- NOTE | 2021-03-08 10:56 | REP ---
INDICATION: PAIN IN UNSPECIFIED JOINT *LABS 1ST, XRY 2ND* COMPARISON: 12/23/2020 TECHNIQUE: AP, lateral, and swimmers views. FINDINGS: Alignment and kyphosis is maintained. Vertebral bodies intact. No acute fracture / compression injury or subluxation. No degenerative changes. Paravertebral soft tissues are normal. IMPRESSION: Normal thoracic spine series. <Electronically signed by Jason Smith > 03/08/21 0660
--- NOTE | 2021-03-08 10:57 | REP ---
INDICATION: PAIN IN UNSPECIFIED JOINT *LABS 1ST, XRY 2ND*. COMPARISON: None. TECHNIQUE: Four views of the sacroiliac joints. FINDINGS: Bilateral sacroiliac joints are symmetric and age-appropriate/normal. IMPRESSION: Normal bilateral sacroiliac joints. <Electronically signed by Jason Smith > 03/08/21 1054
--- NOTE | 2021-03-08 10:58 | REP ---
INDICATION: PAIN IN UNSPECIFIED JOINT *LABS 1ST, XRY 2ND* COMPARISON: None. TECHNIQUE: AP, lateral, bilateral oblique views right and left hand. FINDINGS: The osseous structures and joint spaces are intact, symmetric and normal. There is no evidence for acute fracture or dislocation. Surrounding soft tissues are unremarkable. No significant osteoarthritic or inflammatory arthritic changes are appreciated. IMPRESSION: Normal bilateral hand radiograph series. <Electronically signed by Jason Smith > 03/08/21 [id number]
--- NOTE | 2021-03-08 10:58 | REP ---
INDICATION: PAIN IN UNSPECIFIED JOINT *LABS 1ST, XRY 2ND* COMPARISON: 10/20/2019 TECHNIQUE: AP, lateral, flexion/extension, bilateral oblique, and coned-down views. FINDINGS: Alignment and lordosis is maintained. The vertebral bodies including transverse process and spinous processes are intact and normal. There is no evidence for acute fracture / compression injury or subluxation. No evidence for spondylolysis or spondylolisthesis. No significant degenerative change is noted. IMPRESSION: Normal age-appropriate lumbosacral spine radiograph series. <Electronically signed by Jason Smith > 03/08/21 1052
--- NOTE | 2021-03-08 11:04 | REP ---
INDICATION: PAIN IN UNSPECIFIED JOINT *LABS 1ST, XRY 2ND* COMPARISON: None. TECHNIQUE: AP, lateral, bilateral oblique views right and left foot. FINDINGS: The osseous structures and joint spaces are intact, symmetric and normal. There is no evidence for acute fracture or dislocation. Surrounding soft tissues are unremarkable. No significant degenerative changes are appreciated. IMPRESSION: Symmetric age-appropriate bilateral foot radiograph series. <Electronically signed by Jason Smith > 03/08/21 [id number]
[2021-03-08 11:47] LABS: BASO % 0.6 % (0.0-1.0); EOS % 0.6 % (0.0-3.0); HEMATOCRIT 39.5 % (36.0-47.0); HEMOGLOBIN 12.8 g/dl (12.0-15.5); LYMPH # 1.4 10^3/uL (1.5-5.0); LYMPH % 21.9 % (24.0-44.0); MEAN CORPUSCULAR HGB CONC 32.4 g/dl (32.0-36.5); MEAN CORPUSCULAR VOLUME 92.7 fl (80.0-96.0); MONO # 0.5 10^3/uL (0.0-0.8); MONO % 8.1 % (2.0-8.0); NEUTROPHILS # 4.5 10^3/uL (1.5-8.5); NEUTROPHILS % 68.5 % (36.0-66.0); PLATELET COUNT, AUTOMATED 308 10^3/uL (150-450); RED BLOOD COUNT 4.26 10^6/uL (4.00-5.40); WHITE BLOOD COUNT 6.5 10^3/uL (4.0-10.0)
[2021-03-08 12:17] LABS: ERYTHROCYTE SEDIMENTATION RATE 8 mm/hr (0-20)
[2021-03-08 12:19] LABS: ALT/SGPT 34 U/L (12-78); BILIRUBIN,TOTAL 0.3 MG/DL (0.2-1.0); BLOOD UREA NITROGEN 9 MG/DL (7-18); CALCIUM LEVEL 9.2 MG/DL (8.5-10.1); CARBON DIOXIDE LEVEL 29 MEQ/L (21-32); CHLORIDE LEVEL 105 MEQ/L (98-107); COMPLEMENT C3 102 MG/DL (90-180); COMPLEMENT C4 19 MG/DL (10-40); CREATININE FOR GFR 0.87 MG/DL (0.55-1.30); GLOMERULAR FILTRATION RATE > 60.0 (>60); GLUCOSE, FASTING 81 MG/DL (70-100); POTASSIUM SERUM 4.2 MEQ/L (3.5-5.1); RHEUMATOID FACTOR QUANT < 10.0 IU/ML (<15.0); SODIUM LEVEL 139 MEQ/L (136-145); TOTAL PROTEIN 7.7 GM/DL (6.4-8.2)
== END ==
LOC: M LAB 09:39
PROVIDERS: ATTEND Internal Medicine Rheumatology
DX: M25.50 Pain in unspecified joint (principal)

== ENCOUNTER → 2021-03-08 | Outpatient (CLI) | payer OTHER ==
[2021-03-08 12:28] LABS: THYROXINE (T4) 7.9 UG/DL (4.5-12.0); TOTAL T3 128.9 NG/DL (60.0-181.0)
[2021-03-09 12:12] LABS: SSA SJOGRENS A <0.2 AI (0.0-0.9); SSB SJOGRENS B <0.2 AI (0.0-0.9)
== END ==
LOC: M LAB 09:37
PROVIDERS: ATTEND Ophthalmology
DX: H16.223 Keratoconjunctivitis sicca, not specified as Sjogren's, bilateral (principal)

== ENCOUNTER → 2021-03-17 | Outpatient (CLI) | payer OTHER ==
--- NOTE | 2021-03-17 15:08 | REP ---
INDICATION: F/U RT BREAST BX,COMPLEX CYST VS SOLID NODULE. COMPARISON: There are no prior mammograms for comparison. Ultrasonographic images obtained during a biopsy performed in my [place] were reviewed. TECHNIQUE: Digital mammography was performed in the right breast in both CC and MLO projections using both 2D and 3D modalities along with diagnostic digital magnified spot compression views and diagnostic right breast ultrasonography. FINDINGS: The right breast is symmetric in size and shape. Scattered dense heterogenous fibroglandular elements are seen. There is a surgical biopsy clip seen in the upper outer quadrant of the right breast which was placed during the ultrasound guided breast biopsy. Seen in the right breast near the 9 o'clock position there is a sub cm sized density with partially obscured margins. This is approximately 1.2 cm from the biopsy clip in the CC projection and 1.7 cm from the biopsy clip in the MLO projection. Diagnostic digital magnified spot-compression views show persistence of this nodular density with persistence of partially obscured margins. Diagnostic ultrasonography was obtained using anatomical intelligence and shear wave elastography. At the 9 o'clock position there is a solid appearing hypoechoic nodule with low-level echoes within it. This exhibits slight posterior wall enhancement without significant increased through transmission. Shear wave elastography shows relatively low kPa values. Seen at the 10 o'clock position there is an echogenic focus consistent with the previously placed biopsy clip. A small amount of fluid is seen surrounding the clip. The Volpara volumetric breast density pattern is b. IMPRESSION: BIRADS/ACR category 4 right mammogram and right breast ultrasound as described above. Biopsy of the nodular density seen mammographically and ultrasonographically is recommended. This patient's Tyrer-Cuzick lifetime breast cancer risk assessment score is 14.9%. This mammogram was interpreted with the aid of an FDA-approved computer-aided detection system. The patient states she had a clinical breast exam in October 2020. The patient letter being requested is M4. RECOMMENDATION: As above <Electronically signed by Félix Mcpherson > 03/17/21 0299
== END ==
LOC: M WHC 13:13
PROVIDERS: ATTEND Surgery
DX: N63.10 Unspecified lump in the right breast, unspecified quadrant (principal)
CPT/HCPCS: 76642; 77065; G0279

== ENCOUNTER → 2021-04-05 | Outpatient (CLI) | payer MEDICAID | LOC: M OUTALCOH 09:09 | PROVIDERS: ATTEND Psychiatry & Neurology Psychiatry | DX: F10.10 Alcohol abuse, uncomplicated (principal) ==

== ENCOUNTER → 2021-04-07 | Outpatient (CLI) | payer OTHER ==
[~2021-04-07] MED LIST changes: +GABA600T4 PO; +KLON0.5T PO
--- NOTE | 2021-04-07 15:00 | REP ---
INDICATION: N63.10 RIGHT BREAST MASS/US GUIDED BX/CK CLIP PLACEMT. COMPARISON: Comparison sonography is from March 17, 2021 as well as November 09, 2020. TECHNIQUE: Mediolateral and craniocaudal views of the right breast are obtained after ultrasound-guided needle biopsy of the right breast. This mammogram was interpreted with the aid of an FDA-approved computer-aided detection system. FINDINGS: There are now 2 needle biopsy marker clips in the upper outer quadrant of the right breast. The current clip is 1.8 cm posterior and slightly lateral with respect to the previously placed marker clip. Both of these are approximately 2.5 cm superior to the mammographically visible nodule in the lateral aspect of the right breast. This is felt indicate discordance between the mammographically visible nodule and the ultrasound target. In other words, the nodule visible by ultrasound which was biopsied today is not felt to correspond with the nodule visible mammographically. I note that on ultrasound exam from June 15, 2020 a benign appearing 7 mm lymph node was identified at 9 o'clock in the right breast and this could explain the mammographically visible nodule. Stereotactic needle biopsy was recommended to the patient to ensure that the mammographically visible nodule was sampled.. This was discussed with the patient. The Volpara volumetric breast density pattern is b. : IMPRESSION: Marker clip placement views demonstrate discordance between the ultrasound and mammographic findings . The marker clips are not in position to correlate with the mammographically visible nodule. Stereotactic needle biopsy should be considered. RECOMMENDATION: Stereotactic needle biopsy for nodular density seen right breast. Marker clip placement and post clip placement mammography. This is being arranged to follow. <Electronically signed by Deandre Littlejohn > 04/07/21 [id number]
[2021-04-07 17:30] VITALS: BP 98/72
--- NOTE | 2021-04-08 06:38 | REP ---
INDICATION: RT BREAST NODULE,POST STEREOTACTIC BIOPSY. Marker clip placement views. Post repeat biopsy under stereotactic guidance right breast. COMPARISON: Comparison is made with marker clip placement views obtained earlier today after the ultrasound-guided needle biopsy. TECHNIQUE: Craniocaudal and mediolateral views of the right breast are obtained. FINDINGS: The current CC and mL views demonstrate the stereotactically placed needle biopsy marker clip in good position. There is some post biopsy soft tissue swelling but the clip appears to be within the nodule which was the mammographically identified target. IMPRESSION: Marker clip in good position on repeat marker views post stereotactic guided biopsy right breast. <Electronically signed by Deandre Littlejohn > 04/07/21 [id number]
--- NOTE | 2021-04-08 08:47 | REP ---
INDICATION: RT BREAST NODULE,STEREOTACTIC BIOPSY. COMPARISON: None. TECHNIQUE: This procedure is performed by Rhoda Yan [facility], under the direct supervision of Dr. Littlejohn. The risks and benefits of the procedure were explained to the patient and informed consent was obtained both verbally and written. Directly prior to the start of the procedure, a formal timeout was done in the procedure room. The lateral medial approach was utilized on the prone table. The right breast nodule was localized using mammographic guidance. The skin was prepped and draped in a sterile fashion. Four ml of buffered lidocaine was used as a local anesthetic. FINDINGS: A 10 gauge vacuum assisted mammotome biopsy device was inserted and advanced into the breast lesion and 6 core biopsy samples were obtained. A marker clip shape 3 was placed at the biopsy site. Two of the specimens were noted to be dark with a black pigmented appearance. The patient tolerated the procedure well and there were no immediate complications. After the appropriate amount of monitored convalescence the patient was discharged from the department. IMPRESSION: Stereotactic guided right breast biopsy with micro clip placement. <Electronically signed by Rhoda Yan > 04/07/21 0991 <Electronically signed by Deandre Littlejohn > 04/08/21 [id number]
--- NOTE | 2021-04-08 08:48 | REP ---
INDICATION: N63.10 RIGHT BREAST MASS/US GUIDED BX. COMPARISON: None. TECHNIQUE: The procedure was performed by JENA Nieves, under the direct supervision of Dr. Littlejohn. The risks and benefits of the procedure were explained to the patient and an informed consent was obtained both verbally and written. Directly prior to the start of the procedure a formal time-out was completed in the procedure room. FINDINGS: Using ultrasound guidance the 9 o'clock right breast nodule was localized. The skin was prepped and draped in a sterile fashion. Ten mL of buffered lidocaine was used as a local anesthetic. Using ultrasound guidance a 17/18 gauge coaxial needle biopsy system was inserted and advanced into the right breast nodule. Six core biopsy specimens were obtained, and a micro clip was placed at the biopsy site. The patient tolerated the procedure well and there were no immediate complications. After the appropriate amount of monitored convalescence the patient was discharged from the department. IMPRESSION: 1. Ultrasound-guided right breast nodule biopsy. <Electronically signed by Rhoda Yan > 04/07/21 [id number] <Electronically signed by Deandre Littlejohn > 04/08/21 5946
== END ==
LOC: M WHCPRO 06:40
PROVIDERS: ATTEND Radiology Diagnostic Radiology
DX: D24.1 Benign neoplasm of right breast (principal)
CPT/HCPCS: 19081; 19083; 77065; 88305; G0279

== ENCOUNTER → 2021-04-13 | Outpatient (RCR) | payer MEDICAID | LOC: M OUTALCOH 11:49 | PROVIDERS: ATTEND Psychiatry & Neurology Psychiatry | DX: F10.10 Alcohol abuse, uncomplicated (principal) ==

== ENCOUNTER 2021-05-13 13:03 | Outpatient (RCR) | payer MEDICAID | END 2021-05-14 | LOC: M OUTALCOH 13:03 | PROVIDERS: ATTEND Psychiatry & Neurology Psychiatry | DX: F10.10 Alcohol abuse, uncomplicated (principal) ==

== ENCOUNTER 2021-06-09 09:00 | Outpatient (RCR) | payer MEDICAID | END 2021-06-14 | LOC: M OUTALCOH 09:00 | PROVIDERS: ATTEND Psychiatry & Neurology Psychiatry | DX: F10.10 Alcohol abuse, uncomplicated (principal) ==

== ENCOUNTER → 2025-06-19 | Outpatient (CLI) | payer OTHER ==
[~2025-06-19] MED LIST changes: +GABA-1490 PO; -GABA600T4 PO; -KLON0.5T PO; +KLON0.5T8 PO
[2025-06-19 15:01] LABS: BASO # 0.1 10^3/uL (0.0-0.2); BASO % 0.6 % (0.0-1.0); EOS # 0.1 10^3/uL (0.0-0.5); EOS % 1.0 % (0.0-3.0); LYMPH # 1.8 10^3/uL (1.5-5.0); LYMPH % 23.6 % (24.0-44.0); MONO # 0.6 10^3/uL (0.0-0.8); MONO % 8.1 % (2.0-8.0); NEUTROPHILS # 5.2 10^3/uL (1.5-8.5); NEUTROPHILS % 66.3 % (36.0-66.0); PLATELET COUNT, AUTOMATED 295 10^3/uL (150-450)
[2025-06-19 15:29] LABS: ALT/SGPT 17 U/L (7.0-40); AST/SGOT 23 U/L (<34); CALCIUM LEVEL 9.6 MG/DL (8.5-10.1); CARBON DIOXIDE LEVEL 24 MMOL/L (20-31); CHLORIDE LEVEL 107 MMOL/L (98-107); CREATININE FOR GFR 0.83 MG/DL (0.55-1.30); GLOMERULAR FILTRATION RATE > 90.0 (>60); IRON (FE) 139 UG/DL (50-170); PERCENT SATURATION 45.3 % (13.2-45.0); POTASSIUM SERUM 4.3 MMOL/L (3.5-5.1); SODIUM LEVEL 141 MMOL/L (136-145)
== END ==
LOC: M LAB 14:06
PROVIDERS: ATTEND Nurse Practitioner Family
DX: N92.1 Excessive and frequent menstruation with irregular cycle (principal); K58.0 Irritable bowel syndrome with diarrhea

== ENCOUNTER → 2025-06-22 | Outpatient (CLI) | payer OTHER | LOC: M EKG 12:56 | PROVIDERS: ATTEND Nurse Practitioner Family | DX: R00.0 Tachycardia, unspecified (principal) ==

== ENCOUNTER → 2025-07-22 | Outpatient (CLI) | payer OTHER ==
[~2025-07-22] MED LIST changes: +CRAN500T4 PO; -HM C500T4 PO
== END ==
LOC: M PLAIMG 09:59
PROVIDERS: ATTEND Pain Medicine Interventional Pain Medicine
DX: M25.551 Pain in right hip (principal); M54.16 Radiculopathy, lumbar region; M51.26 Other intervertebral disc displacement, lumbar region; M48.07 Spinal stenosis, lumbosacral region; M24.28 Disorder of ligament, vertebrae; M70.61 Trochanteric bursitis, right hip; M25.451 Effusion, right hip; M25.452 Effusion, left hip; M85.452 Solitary bone cyst, left pelvis

== ENCOUNTER → 2025-10-02 | Outpatient (REF) | payer OTHER | LOC: M LAB REF 17:34 | PROVIDERS: ATTEND Nurse Practitioner Family | DX: M54.16 Radiculopathy, lumbar region (principal) ==